=== PATIENT | female | born 1970 | race Asian ===

== ENCOUNTER 2017-10-27 17:51 | Emergency (ER) | payer OTHER ==
[~2017-10-27] VITALS: Ht 149.9 cm; Wt 60.0 kg
[2017-10-27] MEDS ORDERED: LISI1TAB9 (17:56)
[2017-10-27] MEDS ORDERED: AMOX1255 PO (17:56)
[2017-10-27 20:31] VITALS: BP 159/106
== END 2017-10-27 20:37 | disposition home or self-care (01) ==
LOC: EMS 17:53
DX: I10 Essential (primary) hypertension (principal); M79.602 Pain in left arm; Z98.890 Other specified postprocedural states; Z79.2 Long term (current) use of antibiotics; Z79.899 Other long term (current) drug therapy
CPT/HCPCS: 99283